=== PATIENT | female | born 1955 | race Caucasian/White ===

== ENCOUNTER → 2017-12-06 | Outpatient (CLI) | payer OTHER | END | disposition home or self-care (01) | LOC: LAB SHORT 13:26 → LAB 13:26 | PROVIDERS: Nurse Practitioner | DX: Z01.419 Encounter for gynecological examination (general) (routine) without abnormal findings (principal) | CPT/HCPCS: G0145 ==

== ENCOUNTER → 2021-12-21 | Outpatient (CLI) | payer MEDICARE ==
[2021-12-25 19:10] LABS: HPV 16 Negative (Negative); HPV 18 Negative (Negative); HPV OTHER HR TYPES Negative (Negative)
== END | disposition home or self-care (01) ==
LOC: LAB SHORT 09:50 → LAB 09:50
PROVIDERS: Family Medicine
DX: Z01.419 Encounter for gynecological examination (general) (routine) without abnormal findings (principal)
CPT/HCPCS: 87624; G0145

== ENCOUNTER 2024-05-28 07:11 | Day surgery (SDC) | payer MEDICARE ==
[~2024-05-28] VITALS: Ht 170.2 cm; Wt 61.8 kg
[~2024-05-28 07:11] MED LIST: LISI20 PO; TRAZ150T57 PO
[2024-05-28] MEDS ORDERED: Lactated Ringer's 1,000 ML IV ONE ×2 (07:29→08:21)
[2024-05-28] MEDS ORDERED: propofoL 50 ML IV ONE (07:29)
[2024-05-28] MEDS ORDERED: ALEN70 (07:46)
[2024-05-28] MEDS ORDERED: CENTRUM SILVER1 EAC2 (07:47)
[2024-05-28] MEDS ORDERED: MELO7.5 (07:49)
[2024-05-28] MEDS ORDERED: ACET325 (07:50)
[2024-05-28] MEDS ORDERED: ZYRTEC10 M1 (07:51)
[2024-05-28] MEDS ORDERED: Norco 10-325 T1 EACH (07:51)
[2024-05-28] MEDS ORDERED: PROBIOTIC1 EA14 (07:52)
[2024-05-28] MEDS ORDERED: CALCIUM 250-D1 EAC1 (07:53)
[2024-05-28 10:13] VITALS: BP 95/65
== END 2024-05-28 10:00 | disposition home or self-care (01) ==
LOC: ORSCSDS 07:11
PROVIDERS: Internal Medicine Gastroenterology
PROC: 0DJD8ZZ Inspection of Lower Intestinal Tract, Via Natural or Artificial Opening Endoscopic (ICD-10-PCS; principal; 2024-05-28 08:45)
DX: Z12.11 Encounter for screening for malignant neoplasm of colon (principal); Z86.0102 Personal history of hyperplastic colon polyps
CPT/HCPCS: J2704; J7120